=== PATIENT | male | born 1985 | race Caucasian/White ===

== ENCOUNTER 2017-08-14 13:34 | Emergency (ER) | payer OTHER ==
[~2017-08-14] VITALS: Ht 177.8 cm; Wt 70.5 kg
[2017-08-14 13:38] VITALS: BP 127/71; PULSE 75; RESP 18; TEMP 98.2; O2SAT 97
[2017-08-14] MEDS ORDERED: ROBA500T PO (15:27)
[2017-08-14] MEDS ORDERED: IBUP1TAB7 PO (15:27)
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
== END 2017-08-14 15:47 | disposition home or self-care (01) ==
LOC: PHEFT 13:34
DX: S39.012A Strain of muscle, fascia and tendon of lower back, initial encounter (principal); V43.52XA Car driver injured in collision with other type car in traffic accident, initial encounter
CPT/HCPCS: 99283